=== PATIENT | male | born 1995 | race Two or more races ===

== ENCOUNTER 2019-04-10 09:19 | Emergency (ER) | payer SELFPAY ==
[~2019-04-10] VITALS: Ht 182.9 cm; Wt 69.9 kg
[2019-04-10 10:03] VITALS: BP 151/75
--- NOTE | 2019-04-10 10:46 | PHYS DOC ---
Past Medical History Past Medical History: No Pertinent History Past Surgical History: Appendectomy Alcohol Use: None Drug Use: None Adult General Chief Complaint Chief Complaint: [facility]UR[facility] SYMPTOMS[facility] HPI Patient is a 23 year old male who presents with 1 week of feeling some numbness around his mouth numbness in both hands and both feet it comes and goes since early intermittent overall is associated with some chest pressure feels like something squeezing him he just feels tired he wakes up at 3 in the morning he works until 5 PM he feels like he might be a little dehydrated no shortness of breath just doesn't feel very good overall. No past medical history rare alcohol no drugs no smoking symptoms are mild to moderate and gradually improving with time Review of Systems Review of Systems Constitutional: Denies fever or chills [] Eyes: Denies change in visual acuity, redness, or eye pain [] HENT: Denies nasal congestion or sore throat [] Respiratory: Denies cough or shortness of breath [] Cardiovascular: No additional information not addressed in HPI [] GI: Denies abdominal pain, nausea, vomiting, bloody stools or diarrhea [] : Denies dysuria or hematuria [] Musculoskeletal: Denies back pain or joint pain [] Integument: Denies rash or skin lesions [] Neurologic: No headache All other systems were reviewed and found to be within normal limits, except as documented in this note. Allergies Allergies Allergies Coded Allergies Type Severity Reaction Last Updated Verified No Known Drug Allergies 04/10/19 No Physical Exam Physical Exam Constitutional: Well developed, well nourished, no acute distress, non-toxic appearance. [] HENT: Normocephalic, atraumatic, bilateral external ears normal, oropharynx m oist, no oral exudates, nose normal. [] Eyes: PERRLA, EOMI, conjunctiva normal, no discharge. [] Neck: Normal range of motion, no tenderness, supple, no stridor. [] Cardiovascular:Heart rate regular rhythm, no murmur [] Lungs & Thorax: Bilateral breath sounds clear to auscultation [] Abdomen: Bowel sounds normal, soft, no tenderness, no masses, no pulsatile masses. [] Skin: Warm, dry, no erythema, no rash. [] Back: No tenderness, no CVA tenderness. [] Extremities: No tenderness, no cyanosis, no clubbing, ROM intact, no edema. [] Neurologic: Alert and oriented X 3, normal motor function, normal sensory function, no focal deficits noted. [] Psychologic: Affect normal, judgement normal, mood normal. [] Current Patient Data Vital Signs Vital Signs Date Time Temp Pulse Resp B/P (MAP) Pulse Ox O2 Delivery O2 Flow Rate FiO2 04/10/19 10:03 98.7 87 20 151/75 (100) 99 Room Air 98.7 Lab Values Laboratory Tests Test 04/10/19 10:34 Glucose (Fingerstick) 87 mg/dL (70-99) EKG EKG []Normal sinus rhythm rate 75 no acute ischemic changes noted interpreted by me time of encounter no STEMI Radiology/Procedures Radiology/Procedures [] Course & Med Decision Making Course & Med Decision Making Pertinent Labs and Imaging studies reviewed. (See chart for details) []23-year-old male blood sugar 85 EKG was essentially normal has a week of current intermittent perioral tingling bilateral hand tingling for atypical sounding chest symptoms he is only 23 years old. Very much consistent with eitherdehydration or anxiety in nature he does talk about having to get up at 3 in the morning and work a lot 14 hours a day. Neuro exam is nonfocal he has no reason to have any lab abnormalities think at this point in time given the reassuring vitals patient is awake alert and neurologically intact I think is appropriate for reassurance and outpatient management return precautions discussed. Dragon Disclaimer Dragon Disclaimer This electronic medical record was generated, in whole or in part, using a voice recognition dictation system. Departure Departure Impression: Primary Impression: Anxiety Disposition: 01 HOME, SELF-CARE Condition: STABLE Patient Instructions: Anxiety and Panic Attacks, Ugak-yo-Oopu ZULY WASHINGTON MD April 10, 2019 10:46
--- NOTE | 2019-04-10 12:55 | EKG ---
[facility] [address] [place] [address] Test Date: 2019-04-10 Test Time: 10:30:25 Pat Name: DEL CORBETT Department: Room: Gender: M [employer] Specialist: : 1995 Requested By: ZULY WASHINGTON Order Number: [id number] Reading MD: Measurements Intervals [place] Rate: 75 P: 77 NH: 142 QRS: 78 QRSD: 88 T: 37 QT: 362 QTc: 407 Interpretive Statements SINUS RHYTHM OTHERWISE NORMAL ECG RI6.01 Unconfirmed report No previous ECG available for comparison
== END 2019-04-10 10:42 | disposition home or self-care (01) ==
LOC: ER 09:19
DX: F41.9 Anxiety disorder, unspecified (principal); R20.0 Anesthesia of skin; R07.89 Other chest pain; Z90.89 Acquired absence of other organs
CPT/HCPCS: 82962; 93005; 99285